=== PATIENT | female | born 1950 | race Two or more races ===

== ENCOUNTER 2018-07-15 10:50 | Emergency (ER) | payer SELFPAY ==
[~2018-07-15] VITALS: Ht 160 cm; Wt 52.2 kg
[2018-07-15] MEDS ORDERED: TDAP [DIPH/PERTUSSIS/TET] 0.5 ML VIAL IM ONE ×2 (11:25→11:30)
[2018-07-15 11:37] VITALS: BP 128/81
== END 2018-07-15 11:39 | disposition home or self-care (01) ==
LOC: ER 10:52
DX: S81.831A Puncture wound without foreign body, right lower leg, initial encounter (principal); W54.0XXA Bitten by dog, initial encounter; Y93.01 Activity, walking, marching and hiking; Y92.89 Other specified places as the place of occurrence of the external cause; Y99.8 Other external cause status
CPT/HCPCS: 90471; 90715; 99283; A4606; A6403; Z7610